=== PATIENT | male | born 1970 | race Caucasian/White ===

== ENCOUNTER 2016-10-12 08:07 | Emergency (ER) | payer BC ==
[2016-10-12] MEDS ORDERED: 0.9 % SODIUM CHLORIDE 1,000 ML BAG IV ONE (08:33)
--- NOTE | 2016-10-12 08:44 | Emergency Department Record ---
History of Present Illness - General Chief complaint: GI Bleed Time Seen by Provider: 10/12/16 08:26 Source: Patient Mode of Arrival: Ambulatory Limitations: No limitations - History of Present Illness Initial comments: 46 yo male presents with a reddish tissue like substance in his stool this morning. No abdominal pain currently but he has been having upper abdominal pain for several weeks. He saw his PCP Dr Helm and was started on PPI. He has burping and belching frequently. The stool was normal color. No recent black or bloody stool. No fevers. No vomiting. He is on a baby aspirin daily. For several several weeks he has noticed he has a heart racing sensation sometimes in the mornings that resolves after taking Tenormin. No chest pain or shortness of breath. None currently. Onset/Timin -: Days(s) Radiation: None Severity scale (1-10): 2 Consistency: Intermittent Improves with: None Worsens with: Bowel movement Context: Other (No history of GI bleed or endoscopy) Associated Symptoms: Other (palpitations) Treatments Prior to Arrival: None - Related Data Home Medications Medication Instructions Recorded Confirmed Last Taken Aspirin 81 mg PO DAILY 10/12/16 10/12/16 1 Day Ago ~10/11/16 Atenolol [Tenormin] 25 mg PO DAILY 10/12/16 10/12/16 1 Day Ago ~10/11/16 Atorvastatin Calcium [Lipitor] 20 mg PO DAILY 10/12/16 10/12/16 1 Day Ago ~10/11/16 Omeprazole [Prilosec] 20 mg PO DAILY 10/12/16 10/12/16 1 Day Ago ~10/11/16 Allergies Allergy/AdvReac Type Severity Reaction Status Date / Time Sulfa (Sulfonamide Allergy RASH Verified 10/12/16 08:30 Antibiotics) Travel Screening - Travel/Exposure Within Last 30 Days Have you traveled within the last 30 days?: No - Travel/Exposure Within Last Year Have you traveled outside the [place] in the last year?: No - Additonal Travel Details Have you been exposed to anyone with a communicable illness?: No - Travel Symptoms Symptom Screening: None Review of Systems Constitutional: Denies: Chills, Fever, Malaise, Weakness Eyes: Denies: Eye discharge ENT: Denies: Congestion, Throat pain Respiratory: Denies: Cough, Dyspnea, Hemoptysis, Stridor, Wheezes Cardiovascular: Reports: Palpitations. Denies: Chest pain, Dyspnea on exertion , Edema, Syncope Endocrine: Denies: Fatigue, Polydipsia, Polyuria Gastrointestinal: Reports: Abdominal pain (epigastric), Nausea. Denies: Constipation, Hematemesis, Hematochezia, Melena, Vomiting Genitourinary: Denies: Dysuria, Frequency Musculoskeletal: Denies: Arthralgia, Back pain, Neck pain Skin: Denies: Bruising, Change in color, Rash Neurological: Denies: Confusion, Headache, Weakness Psychiatric: Denies: Anxiety Hematological/Lymphatic: Denies: Blood Clots, Easy bleeding, Easy bruising, Swollen glands Past Medical History - SOCIAL HISTORY Smoking Status: Never smoker Alcohol Use: Occassional Drug Use: None - RESPIRATORY Hx Respiratory Disorders: No - CARDIOVASCULAR Hx Cardio Disorders: No - NEURO Hx Neuro Disorders: No - GI Comment:: recent issues - Hx Genitourinary Disorders: No - ENDOCRINE Hx Diabetes: No Hx Thyroid Disease: No - MUSCULOSKELETAL Hx Musculoskeletal Disorders: No - PSYCH Hx Anxiety: Yes - HEMATOLOGY/ONCOLOGY Hx Hematology/Oncology Disorders: No Family Medical History Any Significant Family History?: Yes Physical Exam - General General Appearance: Alert, Oriented x3, Cooperative, No acute distress Limitations: No limitations - Head Head exam: Normal inspection - Eye Eye exam: Normal appearance, PERRL. negative: Conjunctival injection, Periorbital swelling - ENT ENT exam: Normal exam, Mucous membranes moist, Normal orophraynx Ear exam: Normal external inspection Nasal Exam: Normal inspection Mouth exam: Normal external inspection Teeth exam: Normal inspection Throat exam: Normal inspection - Neck Neck exam: Normal inspection, Full ROM. negative: Tenderness - Respiratory Respiratory exam: Normal lung sounds bilaterally. negative: Respiratory distress - Cardiovascular Cardiovascular Exam: Regular rate, Normal rhythm, Normal heart sounds - GI/Abdominal GI/Abdominal exam: Soft. negative: Tenderness - Rectal Rectal exam: Other (The stool sample brought in was HEME negative for blood. small soft pinkish structures noted in the fluid of unclear etiology.) - exam: Deferred - Extremities Extremities exam: Normal inspection - Back Back exam: Reports: Normal inspection - Neurological Neurological exam: Alert, Oriented X3 - Psychiatric Psychiatric exam: Normal affect, Normal mood. negative: Agitated, Anxious - Skin Skin exam: Dry, Intact, Normal color, Warm Course Vital Signs 10/12/16 08:20 Temperature 98.1 F Pulse Rate 54 L Respiratory 20 Rate Blood Pressure 139/91 Pulse Ox 100 - Reevaluation(s) Reevaluation #1: The pinkish substance in the stool is HEME negative. It will be sent to [facility] for ID to see if it is tissue but undigested food is certainly possible as well. 10/12/16 08:49 Reevaluation #2: EKG 0847 sinus mariaa, rate 54, intervals normal, axis normal, ST normal. No acute changes 10/12/16 08:56 Reevaluation #3: There are no acute changes on the lab tests His Hgb is 14 and he is HEME negative The substance was sent for ID to [facility] He was referred to GI for his continued GERD type symptoms 10/12/16 09:18 Medical Decision Making - Lab Data Result diagrams: 10/12/16 08:55 10/12/16 08:55 Disposition Disposition: Discharge Clinical Impression: Palpitations, Chronic GERD Disposition: Home, Self-Care Condition: (1) Good Instructions: Gastrointestinal Bleeding (ED) Additional Instructions: Return if you have any pain, fever, vomiting or new concerns. Follow up with Dr Helm regarding your ongoing GI symptoms and palpitations Forms: Patient Portal Access Time of Disposition: 09:20
[2016-10-12 09:01] LABS: BASO % 0.5 % (0-6); EOS % 1.6 % (0-6); GRAN % 78.2 % (47-80); HEMATOCRIT 42.2 % (42.0-52.0); HEMOGLOBIN 14.5 gm/dl (14.0-18.0); LYMPH % 12.5 % (16-45); MEAN CELL VOLUME 89.8 fl (81-97); MEAN CORPUSCULAR HEMOGLOBIN 30.9 pg (27-33); MEAN CORPUSCULAR HGB CONC 34.4 g/dl (32-36); MEAN PLATELET VOLUME 9.1 fl (7.4-10.4); MONO % 7.2 % (0-9); PLATELET COUNT 257 K/uL (130-400); RED CELL DISTRIBUTION WIDTH 13.1 % (11.5-14.5); WHITE BLOOD COUNT W/O DIFF 8.8 K/uL (4.2-12.2)
[2016-10-12 09:15] LABS: ALBUMIN 4.7 gm/dL (3.5-5.0); ALKALINE PHOSPHATASE 64 U/L (38-126); ALT/SGPT 51 U/L (21-72); ANION GAP 6.8 (7-16); AST/SGOT 37 U/L (17-59); BILIRUBIN,TOTAL 0.72 mg/dL (0.2-1.3); BLOOD UREA NITROGEN 18 mg/dL (9-20); CARBON DIOXIDE 28.2 mmol/L (22-30); CREATININE 0.9 mg/dL (0.66-1.25); EST GLOMERULAR FILTRATION RATE > 60 ml/min; GLUCOSE,RANDOM 105 mg/dL (70-110); LIPASE 84 U/L (23-300)
== END 2016-10-12 09:38 | disposition home or self-care (01) ==
LOC: ER 08:07
DX: R00.2 Palpitations (principal); K21.9 Gastro-esophageal reflux disease without esophagitis
CPT/HCPCS: 80048; 80076; 83690; 85025; 93005; 93010; 99284; J7030